=== PATIENT | male | born 1995 | race African-American/Black ===

== ENCOUNTER 2023-03-05 08:09 | Emergency (ER) | payer OTHER ==
[2023-03-05 08:47] VITALS: BP 140/78; PULSE 67; RESP 16; TEMP 98.7; BMI 37.5
[2023-03-05] MEDS ORDERED: IBUPROFEN 600 MG TABLET (FP) PO ONE ×2 (09:15→09:23)
== END 2023-03-05 10:10 | disposition home or self-care (01) ==
LOC: JERFT 08:09 → JER 08:09 → JERFT 10:10
DX: M79.641 Pain in right hand (principal); R22.31 Localized swelling, mass and lump, right upper limb; V49.40XA Driver injured in collision with unspecified motor vehicles in traffic accident, initial encounter; Y92.410 Unspecified street and highway as the place of occurrence of the external cause
CPT/HCPCS: 73130-TC-RT-FY; 99283-25